=== PATIENT | female | born 2000 ===

== ENCOUNTER 2021-10-15 08:10 | Inpatient (IN) | payer OTHER ==
[2021-10-15 09:21] LABS: BASO % 0.2 % (0-2.0); EOS % 1.8 % (0-4.5); HEMATOCRIT 34.4 % (32.4-45.2); HEMOGLOBIN 11.6 GM/dL (10.7-15.3); LYMPH % 25.3 % (8-40); MCH 30.2 pg (25.7-33.7); MCHC 33.8 g/dl (32.0-36.0); MEAN CELL VOLUME 89.3 fl (80-96); MEAN PLT VOLUME 11.2 fl (7.5-11.1); MONO % 8.2 % (3.8-10.2); NEUT % 64.5 % (42.8-82.8); PLATELET COUNT 177 10^3/uL (134-434); RBC 3.86 M/mm3 (3.60-5.2); RDW 12.8 % (11.6-15.6); WHITE BLOOD COUNT 6.8 K/mm3 (4.0-10.0)
[2021-10-15 09:27] LABS: INR 0.92 (0.83-1.09); PROTHROMBIN TIME (PATIENT) 10.6 SEC (9.7-13.0)
[2021-10-15 09:29] LABS: ACTIVATED PTT 27.2 SECONDS (25.2-36.5)
[2021-10-15 09:41] LABS: BLOOD UREA NITROGEN 13.7 mg/dL (7-18); CALCIUM 9.5 mg/dL (8.5-10.1)
[2021-10-15 09:44] LABS: CREATININE 0.5 mg/dL (0.55-1.3)
[2021-10-15 10:56] VITALS: BMI 32.2
[2021-10-15] MEDS ORDERED: OXYTOCIN 30 UNITS in 0.9% NS 30 UNIT/500 ML INFUS.BAG IVPB ONE (11:28)
[2021-10-15] MEDS ORDERED: OXYTOCIN 30 UNITS in 0.9% NS 30 UNIT/500 ML INFUS.BAG IVPB SCH (11:30)
[2021-10-15] MEDS: ELECTROLYTE-148 SOLN 1,000 ML IV SCH ×3 (11:35→23:55)
[2021-10-15] MEDS ORDERED: NALOXONE HCL 0.4 MG/ML VIAL IVPUSH PRN (18:44)
[2021-10-15] MEDS ORDERED: BUPIVACAINE HCL/PF 0.25% (2.5MG/ML) 10 ML VIAL ONE (18:45)
[2021-10-15] MEDS ORDERED: FENTANYL/BUPIVACAINE/NS/PF - PCEA - 50 ML DISP.SYRIN EP ONE ×2 (18:46→23:55)
[2021-10-15] MEDS: FENTANYL/BUPIVACAINE/NS/PF - PCEA - 50 ML DISP.SYRIN EP SCH ×2 (19:05→23:55)
[2021-10-15] MEDS ORDERED: LIDOCAINE HCL 1% PRESERVATIVE FREE - 30ML VIAL ONE (19:43)
[2021-10-15] MEDS ORDERED: OXYTOCIN 20 UNITS in 0.9% NS 20 UNIT/1,000 ML INFUS.BAG IV ONE (19:43)
[2021-10-15] MEDS ORDERED: OXYTOCIN 20 UNITS in 0.9% NS 20 UNIT/1,000 ML INFUS.BAG IV SCH (23:45)
[2021-10-15] MEDS ORDERED: IBUPROFEN 800 MG/8 ML IJ IVPB PRN (23:47)
[2021-10-15] MEDS ORDERED: ACETAMINOPHEN 325 MG TABLET (FP) PO PRN (23:47)
[2021-10-16] MEDS ORDERED: ceFAZolin SODIUM 1 GM VIAL ONE (00:37)
[2021-10-16] MEDS ORDERED: OXYTOCIN 10 UNITS/ML VIAL ONE (00:45)
[2021-10-16] MEDS ORDERED: morphine SULFATE/PF 1 MG/2 ML (2cc Syringe - QUVA) ONE ×2 (00:48)
[2021-10-16] MEDS ORDERED: PROMETHAZINE HCL 25 MG/1 ML VIAL ONE (01:01)
[2021-10-16] MEDS ORDERED: ONDANSETRON 4 MG/2 ML VIAL ONE (01:03)
[2021-10-16 07:21] LABS: BASO % 0.2 % (0-2.0); HEMATOCRIT 31.1 % (32.4-45.2); HEMOGLOBIN 10.7 GM/dL (10.7-15.3); LYMPH % 7.8 % (8-40); MCH 30.9 pg (25.7-33.7); MCHC 34.4 g/dl (32.0-36.0); MEAN CELL VOLUME 89.7 fl (80-96); MEAN PLT VOLUME 11.3 fl (7.5-11.1); PLATELET COUNT 153 10^3/uL (134-434); RBC 3.46 M/mm3 (3.60-5.2); RDW 13.2 % (11.6-15.6); WHITE BLOOD COUNT 12.5 K/mm3 (4.0-10.0)
[2021-10-16] MEDS ORDERED: oxyCODONE HCL 5 MG TABLET PO PRN (11:47)
[2021-10-16] MEDS ORDERED: OXYTOCIN 20 UNITS in 0.9% NS 20 UNIT/1,000 ML INFUS.BAG IV SCH (15:45)
[2021-10-16] MEDS: IBUPROFEN 600 MG TABLET (FP) PO PRN (17:02)
[2021-10-16] MEDS: SIMETHICONE 80 MG TAB.CHEW (FP) PO PRN (17:03)
[2021-10-16] MEDS: FENTANYL/BUPIVACAINE/NS/PF - PCEA - 50 ML DISP.SYRIN EP SCH (19:43)
[2021-10-16] MEDS ORDERED: BISACODYL 10 MG SUPP.RECT RC PRN (23:47)
[2021-10-17] MEDS: IBUPROFEN 600 MG TABLET (FP) PO PRN ×3 (01:46→21:07)
[2021-10-17] MEDS: SIMETHICONE 80 MG TAB.CHEW (FP) PO PRN (21:07)
[2021-10-18] MEDS: SIMETHICONE 80 MG TAB.CHEW (FP) PO PRN ×2 (10:22→22:36)
[2021-10-18] MEDS: IBUPROFEN 600 MG TABLET (FP) PO PRN (10:22)
[2021-10-18 10:30] LABS: BASO % 0.2 % (0-2.0); EOS % 3.1 % (0-4.5); HEMATOCRIT 30.6 % (32.4-45.2); HEMOGLOBIN 10.5 GM/dL (10.7-15.3); MCH 30.7 pg (25.7-33.7); MCHC 34.3 g/dl (32.0-36.0); MEAN CELL VOLUME 89.6 fl (80-96); MEAN PLT VOLUME 10.2 fl (7.5-11.1); MONO % 5.4 % (3.8-10.2); NEUT % 73.3 % (42.8-82.8); PLATELET COUNT 182 10^3/uL (134-434); RBC 3.41 M/mm3 (3.60-5.2); RDW 13.1 % (11.6-15.6); WHITE BLOOD COUNT 7.1 K/mm3 (4.0-10.0)
[2021-10-19 11:25] VITALS: BP 120/75; PULSE 78; TEMP 98
== END 2021-10-19 13:20 | disposition home or self-care (01) | DRG 540 ==
LOC: JLDR 08:10 → J3W 10-16 03:25
PROVIDERS: ADMIT Student in an Organized Health Care Education/Training Program; ATTEND Student in an Organized Health Care Education/Training Program
PROC: 10D00Z1 Extraction of Products of Conception, Low, Open Approach (ICD-10-PCS; principal; 2021-10-16)
DX: O62.0 Primary inadequate contractions (principal); O48.0 Post-term pregnancy; Z3A.41 41 weeks gestation of pregnancy; O36.63X0 Maternal care for excessive fetal growth, third trimester, not applicable or unspecified; Z37.0 Single live birth
CPT/HCPCS: 36415; 59025; 80048; 85025; 85610; 85730; 86780; 86850; 86900; 86901; 88307-TC; C9803-CS; U0003; U0005